=== PATIENT | male | born 1975 ===

== ENCOUNTER 2023-11-29 19:39 | Emergency (ER) | payer OTHER ==
[~2023-11-29] VITALS: Ht 177.8 cm; Wt 102.7 kg
[2023-11-29 20:25] VITALS: TEMP 98.5
[2023-11-29] MEDS: CEPHALEXIN MONOHYDRATE 500 MG CAPSULE PO ONE (22:11)
[2023-11-29] MEDS: BACITRACIN 0.9 GM PACKET OINTMENT TP ONE (22:11)
[2023-11-29] MEDS: IBUPROFEN 600 MG TABLET PO ONE (22:11)
[2023-11-29] MEDS: PERTUSS(ACELL),DIPH,TET/PF 0.5 ML SYRINGE [ADULT] IM. ONE (22:13)
[2023-11-29] MEDS: LIDOCAINE 1% 10 ML VIAL ID ONE (22:14)
[2023-11-29] MEDS ORDERED: CEPH-558 PO (22:55)
[2023-11-29] MEDS ORDERED: IBUP-1506 PO (22:55)
[2023-11-29 23:15] VITALS: BP 138/83; PULSE 57; RESP 18; O2SAT 95
== END 2023-11-30 00:01 | disposition home or self-care (01) ==
LOC: EMS 19:39
DX: S61.412A Laceration without foreign body of left hand, initial encounter (principal); F17.210 Nicotine dependence, cigarettes, uncomplicated; W27.0XXA Contact with workbench tool, initial encounter; Y93.89 Activity, other specified; Y92.89 Other specified places as the place of occurrence of the external cause; Y99.8 Other external cause status
CPT/HCPCS: 99284; 73140; 90715; 90471; 12002; J3490